=== PATIENT | female | born 1975 | race African-American/Black ===

== ENCOUNTER 2023-02-09 14:16 | Outpatient (REF) | payer OTHER, SELFPAY ==
--- NOTE | ~2023-02-09 | XR_ITS ---
EXAMINATION: XR LUMBOSACRAL SPINE WITH OBLIQUES CLINICAL INFORMATION: Spondylolisthesis lumbar region. COMPARISON: None available. TECHNIQUE: AP and lateral views of the lumbar spine, inclusive of flexion and extension views, 4 views total. FINDINGS: Mild rightward curvature of the lumbar spine. Postsurgical changes at L4-L5-S1 with posterior rods, transpedicular screws and interdisc spacers. Surgical clips anterior to the lower spine. Hardware appears intact. Surgical clips left lower quadrant. XR/XR lumbar spine 4V min IMPRESSION: Postsurgical changes at L4-L5-S1. Hardware appears intact.
== END 2023-02-09 14:17 | disposition home or self-care (01) ==
LOC: HO.HOSX 14:16
PROVIDERS: PCP Internal Medicine; Visit Provider Physician Assistant
DX: M43.16 Spondylolisthesis, lumbar region (principal)
CPT/HCPCS: 72110